=== PATIENT | female | born 1945 ===

== ENCOUNTER 2020-01-18 07:16 | Day surgery (SDC) | payer OTHER ==
[~2020-01-18 07:16] MED LIST: SYNTHROID50 MCG PO
[2020-01-18] MEDS ORDERED: PERCOCET 5-3251 EACH PO (15:03)
== END 2020-01-18 17:50 | disposition home or self-care (01) ==
LOC: CIR.AMB 07:16
PROVIDERS: ATTEND Surgery
DX: D34 Benign neoplasm of thyroid gland (principal); E04.2 Nontoxic multinodular goiter; Z20.828 Contact with and (suspected) exposure to other viral communicable diseases